=== PATIENT | male | born 1935 | race Caucasian/White ===

== ENCOUNTER 2020-07-27 07:26 | Observation (INO) ==
[2020-07-27] MEDS ORDERED: 0.9 % Sodium Chloride 1,000 ML IVC SCH (08:00)
[2020-07-27] MEDS ORDERED: Nitroglycerin 1,000 MCG/5 ML VIAL IV ONE (08:19)
[2020-07-27] MEDS ORDERED: Heparin 1,000 UNITS/500 mL 500 ML ONE ×3 (08:19→10:29)
[2020-07-27] MEDS ORDERED: 0.9 % Sodium Chloride 1,000 ML ONE (08:19)
[2020-07-27] MEDS ORDERED: ISOVUE-370 200 ML INFUS..BTL ONE (08:19)
[2020-07-27] MEDS ORDERED: *HR* Heparin 10,000 UNIT/10 ML VIAL ONE (08:19)
[2020-07-27] MEDS ORDERED: *HR* Midazolam HCl 2 MG/2 ML VIAL ONE (08:23)
[2020-07-27] MEDS ORDERED: *HR* FentaNYL (PF) 100 MCG/2 ML VIAL ONE ×2 (08:23→09:54)
[2020-07-27] MEDS ORDERED: *HR* Bivalirudin 250 MG VIAL IVC ONE ×2 (09:25→10:15)
[2020-07-27] MEDS ORDERED: Dexamethasone 4 MG/ML VIAL ONE (09:54)
[2020-07-27] MEDS ORDERED: Lidocaine -MPF 2% 2 ML VIAL ONE (09:54)
[2020-07-27] MEDS ORDERED: *HR* Rocuronium Bromide 50 MG/5 ML VIAL ONE (09:54)
[2020-07-27] MEDS ORDERED: *HR* Propofol 200 MG/20 ML VIAL IVP ONE (09:54)
[2020-07-27] MEDS ORDERED: Ondansetron 4 MG/2 ML VIAL ONE (09:54)
[2020-07-27] MEDS ORDERED: Lidocaine -MPF 4% 5 ML AMPUL ONE (10:00)
[2020-07-27] MEDS ORDERED: *HR* Heparin 5,000 UNIT/ML VIAL ONE (10:01)
[2020-07-27] MEDS ORDERED: Heparin 1,000 UNITS/500 mL 0 ML ONE (10:40)
[2020-07-27] MEDS ORDERED: *HR* OxyCODONE/APAP 5/325 TABLET PO PRN (10:46)
[2020-07-27] MEDS ORDERED: Ringers Solution, Lactated 1,000 ML IVC SCH (11:00)
[2020-07-27] MEDS ORDERED: *HR* Etomidate 20 MG/10 ML AMPUL IVP ONE (11:57)
[2020-07-27] MEDS ORDERED: *HR* PHENYLEPHRINE 1,000 MCG/10 ML SYRINGE IVP ONE (12:02)
[2020-07-27] MEDS ORDERED: *HR* FentaNYL (PF) 250 MCG/5 ML VIAL ONE (12:31)
[2020-07-27] MEDS ORDERED: ceFAZolin 2,000 MG in Water for inj. (sterile) 20 ML IVP ONE (12:33)
[2020-07-27] MEDS: *HR* FentaNYL (PF) 100 MCG/2 ML VIAL IVP PRN ×4 (13:30→13:50)
[2020-07-27] MEDS ORDERED: *HR* Labetalol 20 MG/4 ML SYRINGE IVP PRN (14:33)
[2020-07-27] MEDS ORDERED: *HR* HYDROcodone/Acet 5/325 mg TABLET PO PRN (14:33)
[2020-07-27] MEDS ORDERED: Naloxone 0.4 MG/ML INJ IVP PRN (14:33)
[2020-07-27] MEDS ORDERED: Acetaminophen 325 MG TABLET PO PRN (14:33)
[2020-07-27] MEDS: CeFAZolin 2 GM/120 ML BAG IVPB SCH ×2 (14:58→23:34)
[2020-07-28 02:04] LABS: Basophils % 0.1 %; Hematocrit 40.9 % (37.5-50.1); Hemoglobin 14.3 g/dL (12.9-16.9); Immature Granulocytes % 0.3 % (0-4); Lymphocytes # 0.6 K/mcL (0.6-4.6); Lymphocytes % 7.7 %; Mean Corpuscular Hemoglobin 33.3 pg (28.0-33.3); Mean Corpuscular Volume 95.1 fL (83.0-100.0); Mean Platelet Volume 10.2 fL (9.4-12.4); Monocytes # 0.3 K/mcL (0.0-1.3); Monocytes % 3.5 %; Neutrophils # 6.4 K/mcL (1.6-8.9); Platelet Count 198 K/mcL (140-400); Red Cell Distribution Width 11.8 % (11.5-14.5); Segmented Neutrophils % 88.4 %; White Blood Count 7.2 K/mcL (4.3-11.1)
[2020-07-28 05:08] LABS: BUN/Creatinine Ratio 20 (6-26); Blood Urea Nitrogen 26 mg/dL (8-23); Calcium 8.3 mg/dL (8.6-10.3); Carbon Dioxide 23 mEq/L (23-29); Chloride 105 mEq/L (98-107); Glucose 145 mg/dL (70-105); Osmolality,Calculated 287 (280-300); Potassium 4.6 mEq/L (3.5-5.1); Sodium 135 mEq/L (136-145); eGFR For African Americans > 60 (> 60); eGFR For Non-African Americans 52 (> 60)
[2020-07-28] MEDS: CeFAZolin 2 GM/120 ML BAG IVPB SCH (08:11)
[2020-07-28] MEDS ORDERED: lisinopriL 5 MG TABLET PO SCH (09:00)
[2020-07-28 11:38] VITALS: BP 112/61
== END 2020-07-28 15:18 | disposition home or self-care (01) ==
LOC: INVDIALAB 07:26 → 2NNU 07:26
PROVIDERS: ADMIT Internal Medicine Interventional Cardiology; ATTEND Internal Medicine Interventional Cardiology